=== PATIENT | male | born 1980 | race Caucasian/White ===

== ENCOUNTER → 2017-06-27 | Outpatient (CLI) | payer BC ==
[~2017-06-27] MED LIST: BND25X PO; CLON0.5T3 PO; GLC500 PO; IBUP-1428 PO; OXYC-57 PO; RANI300T2 PO
[2017-06-27 11:37] LABS: ALT/SGPT 75 U/L (12-78); AST/SGOT 27 U/L (15-37); BLOOD UREA NITROGEN 13 mg/dl (7-18); BUN/CREATININE RATIO 12.1 (10-20); CALCIUM 8.8 mg/dl (8.5-10.1); CARBON DIOXIDE 27 mmol/L (21-32); CHLORIDE 106 mmol/L (98-107); GLUCOSE 114 mg/dl (70-99); POTASSIUM 4.3 mmol/L (3.5-5.1); SODIUM 138 mmol/L (136-145)
[2017-06-27 11:48] LABS: ALB/GLOB RATIO 1.1 (0.9-2); ALKALINE PHOSPHATASE 98 U/L (45-117); CHOLESTEROL 151 mg/dl (0-200); CHOLESTEROL/HDL RATIO 7.6; HDL CHOLESTEROL 20 mg/dl; TRIGLYCERIDES 419 mg/dl (0-150)
== END | disposition home or self-care (01) ==
LOC: C.LABBC 08:33
PROVIDERS: ATTEND Nurse Practitioner Family
DX: Z13.220 Encounter for screening for lipoid disorders (principal); Z13.1 Encounter for screening for diabetes mellitus; Z13.29 Encounter for screening for other suspected endocrine disorder

== ENCOUNTER → 2017-11-23 | Outpatient (CLI) | payer OTHER ==
[2017-11-23 13:51] LABS: HEMOGLOBIN A1C 5.3 % (4.5-5.6)
[2017-11-23 14:12] LABS: ALT/SGPT 84 U/L (12-78); AST/SGOT 28 U/L (15-37); BLOOD UREA NITROGEN 16 mg/dl (7-18); CALCIUM 9.1 mg/dl (8.5-10.1); CARBON DIOXIDE 25 mmol/L (21-32); CREATININE 1.06 mg/dl (0.60-1.40); GLUCOSE 108 mg/dl (70-99); POTASSIUM 4.2 mmol/L (3.5-5.1); SODIUM 137 mmol/L (136-145)
[2017-11-23 14:15] LABS: ALKALINE PHOSPHATASE 66 U/L (45-117); CHOLESTEROL 178 mg/dl (0-200); LDL CHOLESTEROL CALCULATED 82 mg/dl; TOTAL PROTEIN 7.8 gm/dl (6.4-8.2)
== END | disposition home or self-care (01) ==
LOC: C.LABBC 10:36
PROVIDERS: ATTEND Nurse Practitioner Family
DX: R73.9 Hyperglycemia, unspecified (principal); E78.1 Pure hyperglyceridemia

== ENCOUNTER 2021-12-05 07:46 | Inpatient (IN) ==
[2021-12-05] MEDS ORDERED: ONDANSETRON INJ 2 MG/ML 2 ML VIAL IV STA (08:06)
[2021-12-05] MEDS ORDERED: MoRPHine SULFATE 4 MG/ML 1 ML CARP\\VIAL IV STA (08:06)
--- NOTE | 2021-12-05 08:08 | Emergency Department Note ---
History of Present Illness General Chief complaint: Back Injury/Pain Stated complaint: SEVERE BACK PAIN Time Seen by Provider: 12/05/21 07:52 History of Present Illness Maximum Pain Intensity: 7 This is a 41-year-old male that presents to the emergency department via private vehicle accompanied by female with complaints of "severe back pain". The patient states that he has been experiencing back pain for several years however over the past month it has significantly worsened. He denies any history of surgery to the back. He states that he believes the back pain recently worsened after he was cutting firewood. He notes that he presented here to the ED as well as [facility] and had an MRI of the L-spine performed. He then followed up with Dr. Campbell's office. Pain has been worsening. He presents to us today for further evaluation and management. Patient denies any fevers or chills. No abdominal pain. No chest pain or shortness of breath. He does note some weakness in the legs. No bowel or bladder incontinence or numbness/tingling in the genital region. Current pain 05/07. Home Medications Medication Instructions Recorded Confirmed Type fluoxetine 40 mg capsule 40 mg PO DAILY 11/26/21 12/05/21 History lansoprazole 30 mg capsule,delayed 30 mg PO DAILY 11/26/21 12/05/21 History release naproxen 500 mg tablet 500 mg PO BID PRN 11/26/21 12/05/21 History tramadol 50 mg tablet 50 mg PO QID PRN 11/26/21 12/05/21 History trazodone 50 mg tablet 50 mg PO HS PRN 11/26/21 12/05/21 History Allergies Allergy/AdvReac Type Severity Reaction Status Date / Time famotidine Allergy Intermediate HIVES/ULCERS Verified 11/26/21 22:13 IN MOUTH Past Med/Surg History Medical History [facility] Surgical History No significant past surgical history Social History Smoking Status: Never smoker Preferred Language: Kosovan Feels Safe at Home: Yes Review of Systems A total of 10 systems reviewed and were otherwise negative Physical Exam Vital Signs Vital Signs - 24 hr 12/05/21 07:49 12/05/21 08:39 12/05/21 09:16 Temperature 36.4 C L Temperature Source Oral Pulse Rate 104 H Pulse Rate [Left Finger] 86 82 Respiratory Rate 20 20 20 Respiratory Effort / Characteristics Non-Labored Non-Labored Respiratory Depth Normal Normal Blood Pressure 164/100 H Blood Pressure [Left Arm] 143/80 H 120/69 Blood Pressure Mean 121 Blood Pressure Mean [Left Arm] 101 86 Pulse Oximetry 99 97 97 Oxygen Delivery Method Room Air Room Air Room Air Sepsis Recent Fever Within 48 Hours No Sepsis New/Unexplained Change in Mental Status No Sepsis Action Taken by Nursing No Action Required VITAL SIGNS - Vital signs and nursing notes were reviewed. Stable and afebrile. GENERAL -41-year-old male appearing his stated age who is in no acute distress. Communicates well with provider and answers questions appropriately. SKIN - Without rashes. No meningeal or petechial rash. HEAD - NC/AT. EYES - Sclera anicteric. LUNGS - Chest wall symmetric without accessory muscle use, intercostals retractions, or central cyanosis. Normal vesicular breath sounds CTA B/L. No wheezes, rales, or rhonchi appreciated. CARDIAC - RRR with S1/S2. No murmur, rubs, or gallops appreciated. ABDOMENbenign abdominal exam. No tenderness to palpation. EXTREMITIES - No clubbing or peripheral cyanosis. Decreased movement of the left leg secondary to pain. +5/5 strength noted in UE/LE bilaterally. NEUROLOGIC - Cranial nerves II through XII grossly intact. PSYCH - A&Ox3 and cooperates fully with examiner. Pt is very pleasant and interacts well with examiner. Course Administered Medications Discontinued Medications Morphine Sulfate (Morphine Sulfate 4 Mg/Ml 1 Ml Carp\\Vial) 4 mg IV NOW STA Stop: 12/05/21 08:07 Last Admin: 12/05/21 08:33 Dose: 4 mg Documented by: [id number] Ondansetron HCl (Ondansetron Inj 2 Mg/Ml 2 Ml Vial) 4 mg IV NOW STA Stop: 12/05/21 08:07 Last Admin: 12/05/21 08:33 Dose: 4 mg Documented by: [id number] Medical Decision Making Laboratory Data Result diagrams: 12/05/21 08:16 12/05/21 08:16 Lab Results 12/05/21 12/05/21 12/05/21 Range/Units 08:16 08:16 08:16 WBC 7.75 (4.8-10.8) K/uL RBC 4.93 (4.7-6.1) M/uL Hgb 15.7 (14.0-18.0) g/dL Hct 45.0 (42-52) % MCV 91.3 (80-100) fL MCH 31.8 (25-34) pg MCHC 34.9 (32-36) g/dL RDW Std Deviation 41.7 (36.4-46.3) fL RDW Coeff of Zeke 12.4 (11.5-14.5) % Plt Count 236 (130-400) K/uL MPV 9.3 (7.4-10.4) fL Immature Gran % (Auto) 0.3 % Neut % (Auto) 53.6 % Lymph % (Auto) 37.8 % [place] % (Auto) 5.9 % Eos % (Auto) 2.1 % Baso % (Auto) 0.3 % Neut # (Auto) 4.16 (1.4-6.5) K/uL Lymph # (Auto) 2.93 (1.2-3.4) K/uL [place] # (Auto) 0.46 (0.11-0.59) K/uL Eos # (Auto) 0.16 (0-0.5) K/uL Baso # (Auto) 0.02 (0-0.2) K/uL Immature Gran # (Auto) 0.02 (0.00-0.02) K/uL PT 10.5 (9.0-12.0) Seconds INR 1.0 (0.9-1.1) APTT 27.9 (21.0-31.0) Seconds PTT Ratio 1.1 Sodium 138 (136-145) mmol/L Potassium 3.6 (3.5-5.1) mmol/L Chloride 103 (98-107) mmol/L Carbon Dioxide 27 (21-32) mmol/L Anion Gap 8 (3-11) BUN 15 (6-23) mg/dl Creatinine 0.98 (0.6-1.4) mg/dl Est Cr Clr Drug Dosing 113.0 ml/min Est GFR ( Amer) 109.0 ml/min Est GFR (Non-Af Amer) 94.1 ml/min BUN/Creatinine Ratio 15.3 (10-20) Glucose 131 H (70-99(Fasting)) mg/dl Calcium 9.3 (8.5-10.1) mg/dl Total Bilirubin 0.9 (0.2-1.0) mg/dl AST 20 (13-39) U/L ALT 40 (7-52) U/L Alkaline Phosphatase 69 (34-104) U/L Total Protein 7.1 (6.0-8.3) gm/dl Albumin 4.3 (3.4-5.0) gm/dl Globulin 2.8 (2.5-4.0) gm/dl Albumin/Globulin Ratio 1.5 (0.9-2) MDM Narrative Patient was seen and evaluated as above in room C08. Review was performed of nu rsing notes and vital signs. I did review pertinent previous visits and patient history. After obtaining a thorough history and physical examination the above work up was performed. Patient presents to us today with ongoing low back discomfort. He has followed up recently in Dr. Campbell's office for his spine ailment. He has had an MRI of the L-spine recently he notes at [facility]. He was referred here by the spine office. I did discuss the case with Dr. Campbell. He notes that he was able to view the patient's MRI of the L-spine. The patient does have abnormalities of which correlate with his discomfort. He will admit the patient for further evaluation and management with surgical intervention to repair this abnormality and to alleviate the patient's symptoms. Patient is happy with plan of care. He was ordered IV analgesics here. Basic labs were also drawn without significant abnormalities. Please refer to further documentation regarding his stay. GCS: 15 In the evaluation and treatment of this patient the following differential diagnosis entertained: Fracture, dislocation, subluxation, cauda equina syndrome, AAA, diverticulitis, appendicitis, torsion, osteomyelitis, piriformis syndrome, strain, sprain, among others. Impression & Plan Lumbar radiculopathy Discharge Plan Visit Data Chief Complaint: Back Injury/Pain Stated Complaint: SEVERE BACK PAIN ED Provider: Tyler Garcia ED Midlevel Provider: Manuel Puri Discharge Problem: Lumbar radiculopathy Patient Disposition: Admitted As Inpatient Condition: Good Forms Stand Alone Forms: My [facility] Prescriptions Prescriptions: No Action fluoxetine 40 mg capsule 40 mg PO DAILY RF: 0 trazodone 50 mg tablet 50 mg PO HS PRN (Reason: Sleep) RF: 0 tramadol 50 mg tablet 50 mg PO QID PRN (Reason: Pain) RF: 0 lansoprazole 30 mg capsule,delayed release(DR/EC) 30 mg PO DAILY RF: 0 naproxen 500 mg tablet 500 mg PO BID PRN (Reason: Pain) RF: 0 Referrals Referrals: Bob Serrano MD [Primary Care Provider] -
[2021-12-05 08:27] LABS: Basophils # (auto) 0.02 K/uL (0-0.2); Basophils % (auto) 0.3 %; Eosinophils # (auto) 0.16 K/uL (0-0.5); Eosinophils % (auto) 2.1 %; Hemoglobin 15.7 g/dL (14.0-18.0); Immature Granulocytes # (auto) 0.02 K/uL (0.00-0.02); Immature Granulocytes % (auto) 0.3 %; Lymphocytes # (auto) 2.93 K/uL (1.2-3.4); Lymphocytes % (auto) 37.8 %; Mean Corpuscular Hemoglobin 31.8 pg (25-34); Mean Corpuscular Hgb Conc 34.9 g/dL (32-36); Mean Corpuscular Volume 91.3 fL (80-100); Mean Platelet Volume 9.3 fL (7.4-10.4); Monocytes # (auto) 0.46 K/uL (0.11-0.59); Monocytes % (auto) 5.9 %; Neutrophils # (auto) 4.16 K/uL (1.4-6.5); Neutrophils % (auto) 53.6 %; Platelet Count 236 K/uL (130-400); RDW Coefficient of Variation 12.4 % (11.5-14.5); RDW Standard Deviation 41.7 fL (36.4-46.3); Red Blood Count 4.93 M/uL (4.7-6.1); White Blood Count 7.75 K/uL (4.8-10.8)
[2021-12-05 08:39] LABS: Partial Thromboplastin Ratio 1.1; Partial Thromboplastin Time 27.9 Seconds (21.0-31.0); Prothrombin Time 10.5 Seconds (9.0-12.0)
[2021-12-05 08:45] LABS: Albumin Globulin Ratio 1.5 (0.9-2); Albumin Level 4.3 gm/dl (3.4-5.0); BUN Creatinine Ratio 15.3 (10-20); Bilirubin,Total 0.9 mg/dl (0.2-1.0); Calcium 9.3 mg/dl (8.5-10.1); Est GFR (Non-African American) 94.1 ml/min; Globulin 2.8 gm/dl (2.5-4.0); Potassium 3.6 mmol/L (3.5-5.1); Total Protein 7.1 gm/dl (6.0-8.3)
[2021-12-05] MEDS: MoRPHine SULFATE 4 MG/ML 1 ML CARP\\VIAL IV PRN ×5 (10:12→16:58)
--- NOTE | 2021-12-05 10:51 | History & Physical Report ---
Date of Service December 05, 2021 Assessment & Plan (1) Lumbar disc herniation with radiculopathy: Plan: Excessive lumbar discrimination with a massive free fragment and cephalad migration at the L4-L5 level. Plan at this time he has severe radiculopathy and progressive neuro deficit. I am concerned he will establish a permanent foot drop. I am recommending an urgent lumbar decompression and fusion L4-L5. I will acknowledge he does have degenerative changes at L5-S1 but this is not contributing to his current symptom complex. He would require a wide decompression to safely and adequately remove the herniated disc fragments. This will create iatrogenic instability on top of an already compromised disc and subsequently require fusion. Risk benefits pros cons alternatives were in detail. We will make the patient n.p.o. after midnight plan for surgery t omorrow. History of Present Illness Chief Complaint: Severe back and bilateral leg pain Primary Care Provider: Bob Serrano MD This is a 41-year-old male who presents with lumbar back pain with radiation to bilateral lower extremities. Pain is much worse on the left than the right. It radiates in the left buttock posterior thigh to the foot. There is dense numbness and tingling in the left lower extremity. He is been developing a foot drop and left lower extremity. This is markedly limited his ability to stand and ambulate. He has been to the emergency room on more than one occasion secondary to severe pain. He is attempted recent manager long term care without any benefit. Is undergone lumbar injections in the past without improvement. Allergies Allergy/AdvReac Type Severity Reaction Status Date / Time famotidine Allergy Intermediate HIVES/ULCERS Verified 11/26/21 22:13 IN MOUTH Home Medications Medication Instructions Recorded Confirmed Type fluoxetine 40 mg capsule 40 mg PO DAILY 11/26/21 12/05/21 History lansoprazole 30 mg capsule,delayed 30 mg PO DAILY 11/26/21 12/05/21 History release naproxen 500 mg tablet 500 mg PO BID PRN 11/26/21 12/05/21 History tramadol 50 mg tablet 50 mg PO QID PRN 11/26/21 12/05/21 History trazodone 50 mg tablet 50 mg PO HS PRN 11/26/21 12/05/21 History Past Med/Surg History Medical History Bulging lumbar disc On [facility] MRI 2019 Surgical History No significant past surgical history Social History Smoking Status: Never smoker Preferred Language: Ethiopian Feels Safe at Home: Yes Physical Exam Physical Exam: On exam he does demonstrate 4-/5 left extensor pollicis longus and dorsiflexion compared to 5 or 5 on the right. Quadriceps are symmetric and intact. There is dense numbness to light touch and cold sensation to the left lower extremity compared to the right. There is both a contralateral tension sign with straight leg raising on the right as well as severe tension signs with straight leg raising on the left. Determine flexes diminished. Results & Data ([facility]) Vital Signs (Past 12 Hours) Vital Signs Temp Pulse Pulse Resp BP BP Pulse Ox 12/05/21 09:16 82 20 120/69 97 12/05/21 08:39 86 20 143/80 H 97 12/05/21 07:49 36.4 C L 104 H 20 164/100 H 99
[2021-12-05 12:02] LABS: Appearance Urine Clear (Clear); Bilirubin Urine Negative (Negative); Blood Urine Negative (Negative); Color Urine Yellow; Glucose Urine UA Negative (Negative); Ketones Urine Trace (Negative); Leukocyte Esterase Urine Negative (Negative); Nitrite Urine Negative (Negative); Protein Urine Negative (Negative); Specific Gravity Urine 1.028 (1.000-1.030); Urobilinogen Urine Negative (Negative)
--- NOTE | 2021-12-05 16:36 | Hospitalist Consultation ---
Date of Consultation December 05, 2021 Assessment & Plan (1) Lumbar disc herniation with radiculopathy: (2) Low back pain: (3) Bulging lumbar disc: - Pain management, bowel regimen and DVT ppx per the primary team. - MRI from outpt reviewed by the primary team which was noted to have abnor malities which would cause pain symptoms. Lumbar spine xray from 11/26 does not reveal acute fractures. - PT/OT consults after surgical procedure tomorrow - NPO at midnight - Follow am CBC to monitor for acute blood loss after surgery, hgb is currently stable - Has been following with pain management clinic as outpt - trialed naproxen, tramadol, and gabapentin with minimal relief. Would stop naproxen and tramadol. Cont gabapentin 300 mg TID. (4) GERD (gastroesophageal reflux disease): - Cont lansoprazole daily (5) Restless leg syndrome: - Not on medication for such, monitor (6) PTSD (post-traumatic stress disorder): - may continue prozac 40 mg daily, pt stopped trazodone 50 mg HS while was trialing tramadol - would dc on discharge. DVT ppx: - teds, scds CODE: Full code Dispo: From home, likely to remain in the hospital x 1-2 days Thank you for involving us in the care of Mr. Crowell. Please do not hesitate to call with questions or concerns. At this time medicine service will follow along. Supervising Physician Co-Signing Physician Notes 41-year-old male with PMHx of L4-L5 lumbar disc herniation with radiculopathy, failure of OP pain Mx and compicated w/ Lt foot drop, GERD, medical marijuana use, PTSD and RLS presented 12/05 to our ED, is evaluated by Dr. Campbell, for possible lumbar decompression tomorrow, is a medical consult for us. Patient denies any fever/chills/chest pain/cough/palpitation/other review of symptoms. No problems w/ bowel or bladder. Labs reviewed. Home medications reviewed. Pain control/DVT prophylaxis/PT/OT per Ortho. Incentive spirometry. Follow-up with EKG and chest x-ray. Upon examination: GENERAL: Alert and oriented x3. NAD, on RA. HEENT: No pallor, no icterus. Pupils equal, round and reactive to light. Oral mucosa moist. NECK: No JVD, no neck masses. HEART: S1 and S2 heard. Regular rate and rhythm. No murmur, no gallop. RESPIRATORY SYSTEM: Normal AP diameter. No accessory muscle use. No wheezing, no crackles. ABDOMEN: Soft, bowel sounds present, nontender, no distention. CENTRAL NERVOUS SYSTEM: No facial droop. Speech is clear. Obeys simple commands. Moves extremities. EXTREMITIES: No edema, no erythema seen. Left foot drop. Low back pain on SLRT x LLE. I have seen and examined the patient and have discussed the case with the provider above. I agree with the assessment and plan as stated. History of Present Illness Reason for Consultation: Medical management Requesting Physician: Dr. Campbell Attending Physician: Dr. Campbell History of Present Illness This is a 41-year-old male with PMHx of L4-L5 lumbar disc herniation with radiculopathy, who has previously followed with pain management clinic as an outpatient for lumbar spine issues. Other past medical history includes GERD, medical marijuana use, PTSD and restless leg syndrome. Initially The patient's pain started at the beginning of October where he initially presented to his PCP as an outpatient on 11/22/2021 for severe back pain, burning, and difficulty standing up from a sitting position. Patient has had significant difficulty with walking, however is not using any ambulatory assistive device. He admits to collapsing to the couch due to pain, intolerance to continue walking at times. He denies any mechanical falls. Denies bowel or bladder incontinence. He has a large left paracentral disc extrusion trusion L4-5 with significant central stenosis and impact on traversing nerve roots causing weakness of the left great toe extension and now progressively worsened to foot drop. He lives at home with his and his daughter. Patient is not vaccinated against COVID-19. Patient presented to the ER today was evaluated by Dr. Campbell who plans to take the patient for surgical procedure tomorrow morning. Social Hx: Previously smoked 1 ppd x 15 years, quit 10-12 years ago. Rare alcohol use, once yearly Past surgical hx: Previous Left tibia and fibula fracture as a child Allergies Allergy/AdvReac Type Severity Reaction Status Date / Time famotidine Allergy Intermediate HIVES/ULCERS Verified 11/26/21 22:13 IN MOUTH Home Medications Medication Instructions Recorded Confirmed Type fluoxetine 40 mg capsule 40 mg PO DAILY 11/26/21 12/05/21 History lansoprazole 30 mg capsule,delayed 30 mg PO DAILY 11/26/21 12/05/21 History release naproxen 500 mg tablet 500 mg PO BID PRN 11/26/21 12/05/21 History tramadol 50 mg tablet 50 mg PO QID PRN 11/26/21 12/05/21 History trazodone 50 mg tablet 50 mg PO HS PRN 11/26/21 12/05/21 History Patient History Medical History Bulging lumbar disc On [facility] 2019 Surgical History No significant past surgical history Social History Smoking Status: Never smoker Preferred Language: Mohawk Feels Safe at Home: Yes Review of Systems Review of Systems: Constitutional: No fever, sweats or chills Eyes: No diplopia, no worsening or blurred vision ENT: normal hearing, no trouble swallowing Respiratory: No cough, sputum, dyspnea at rest or on exertion Cardiovascular: No chest pain, tightness or palpitations Abdomen: No pain, nausea, vomiting, diarrhea or constipation Back: Left lower back Musculoskeletal: L hip joint pain, no calf pain, no swelling Neurologic: Left lower back and hip pain, radiating into the left hip, sometimes radiates down the back of his leg, sometimes pain in tib/fib area and feels like it did when he broke it as a child. Admits to burning sensation and dullness to light touch in left leg with tingling. + balance issues since back pain. Psychiatric: Hx of PTSD on medication Skin: No rash or itch Physical Exam Physical Exam: General: awake, alert, no apparent distress Head: Normocephalic, atraumatic ENT: PERRL, EOMI, no pharyngeal exudate, mucous membranes moist Chest: Clear to auscultation, on room air, no adventitious breath sounds Cardiac: Regular rate and rhythm, no murmur, no JVD, normal peripheral pulses, good capillary refill Abdominal: NABS x 4 quadrants, soft, nondistended, nontender to palpation, no rebound or guarding Back: able to perform straight leg raise with the right leg, not the left due to pain in the lower back. Extremities: Normal inspection, no peripheral edema or erythema, calfs nontender to palpation Psych: Normal mood and affect Neuro: AAO x 3, strength intact bilaterally and rated 5/5 in upper extremities, plantarflexion. + deficit with dorsiflexion of the left foot, + decreased sensation to light touch in the left lower leg and foot compared to right. + intact sharp and dull touch. speech is clear Results & Data Results & Data ([facility]) Vital Signs (Past 12 Hours) Vital Signs Temp Pulse Pulse Resp BP BP Pulse Ox 12/05/21 16:24 85 16 119/77 99 12/05/21 11:14 18 126/93 98 12/05/21 09:16 82 20 120/69 97 12/05/21 08:39 86 20 143/80 H 97 12/05/21 07:49 36.4 C L 104 H 20 164/100 H 99 Laboratory Results 12/05/21 12/05/21 12/05/21 14:20 11:55 10:30 WBC RBC Hgb Hct MCV MCH MCHC RDW Std Deviation RDW Coeff of Zeke Plt Count MPV Immature Gran % (Auto) Neut % (Auto) Lymph % (Auto) [place] % (Auto) Eos % (Auto) Baso % (Auto) Neut # (Auto) Lymph # (Auto) [place] # (Auto) Eos # (Auto) Baso # (Auto) Immature Gran # (Auto) PT INR APTT PTT Ratio Sodium Potassium Chloride Carbon Dioxide Anion Gap BUN Creatinine Est Cr Clr Drug Dosing Est GFR ( Amer) Est GFR (Non-Af Amer) BUN/Creatinine Ratio Glucose Calcium Total Bilirubin AST ALT Alkaline Phosphatase Total Protein Albumin Globulin Albumin/Globulin Ratio Urine Color Yellow Urine Appearance Clear Urine pH 6.0 Ur Specific [place] 1.028 Urine Protein Negative Urine Glucose (UA) Negative Urine Ketones Trace H Urine Blood Negative Urine Nitrite Negative Urine Bilirubin Negative Urine Urobilinogen Negative Ur Leukocyte Esterase Negative SARS-CoV-2, RNA, NAAT NEGATIVE Blood Type A Positive Antibody Screen NEGATIVE 12/05/21 12/05/21 12/05/21 08:16 08:16 08:16 WBC 7.75 RBC 4.93 Hgb 15.7 Hct 45.0 MCV 91.3 MCH 31.8 MCHC 34.9 RDW Std Deviation 41.7 RDW Coeff of Zeke 12.4 Plt Count 236 MPV 9.3 Immature Gran % (Auto) 0.3 Neut % (Auto) 53.6 Lymph % (Auto) 37.8 [place] % (Auto) 5.9 Eos % (Auto) 2.1 Baso % (Auto) 0.3 Neut # (Auto) 4.16 Lymph # (Auto) 2.93 [place] # (Auto) 0.46 Eos # (Auto) 0.16 Baso # (Auto) 0.02 Immature Gran # (Auto) 0.02 PT 10.5 INR 1.0 APTT 27.9 PTT Ratio 1.1 Sodium 138 Potassium 3.6 Chloride 103 Carbon Dioxide 27 Anion Gap 8 BUN 15 Creatinine 0.98 Est Cr Clr Drug Dosing 113.0 Est GFR ( Amer) 109.0 Est GFR (Non-Af Amer) 94.1 BUN/Creatinine Ratio 15.3 Glucose 131 H Calcium 9.3 Total Bilirubin 0.9 AST 20 ALT 40 Alkaline Phosphatase 69 Total Protein 7.1 Albumin 4.3 Globulin 2.8 Albumin/Globulin Ratio 1.5 Urine Color Urine Appearance Urine pH Ur Specific [place] Urine Protein Urine Glucose (UA) Urine Ketones Urine Blood Urine Nitrite Urine Bilirubin Urine Urobilinogen Ur Leukocyte Esterase SARS-CoV-2, RNA, NAAT Blood Type Antibody Screen (1) Low back pain Back pain laterality: left Chronicity: acute Sciatica laterality: sciatica of left side Sciatica presence: with sciatica Qualified Code(s): M54.42 - Lumbago with sciatica, left side
[2021-12-05] MEDS ORDERED: MoRPHine SULFATE 4 MG/ML 1 ML CARP\\VIAL IV PRN (17:07)
--- NOTE | 2021-12-05 17:39 | XRay Report ---
XR chest 1V portable CLINICAL HISTORY: Preoperative evaluation. COMPARISON STUDY: No previous studies for comparison. FINDINGS: Lung volumes are normal. Lungs are clear. There is no pneumothorax or pleural effusion. Car diac size is normal. Mediastinal contours are normal. There is no evidence for pulmonary edema. Incid ental note is made of an azygos fissure. IMPRESSION: No acute cardiopulmonary findings. ACT 112: Negative or not required by law. Electronically signed by: Bart Rodrigez M.D. 12/05/2021 5:38 PM
[2021-12-05] MEDS ORDERED: LORazepam 0.5 MG/1 ML VIAL IV PRN (19:58)
[2021-12-05] MEDS ORDERED: traMADol HCL 50 MG TABLET PO PRN (19:58)
[2021-12-05] MEDS ORDERED: PROMETHAZINE HCL 12.5 MG in SODIUM CHLORIDE 0.9% 50 ML IV PRN (19:58)
[2021-12-05] MEDS ORDERED: traZODone HCL 50 MG TAB PO PRN (19:58)
[2021-12-05] MEDS ORDERED: NALOXONE HCL 0.4 MG/1 ML VIAL/CARP IV PRN (19:58)
[2021-12-05] MEDS ORDERED: ONDANSETRON 4 MG OD TAB PO PRN (19:58)
[2021-12-05] MEDS ORDERED: HYDROmorphone INJ 0.5 MG/0.5 ML SYR IV PRN (19:58)
[2021-12-05] MEDS ORDERED: ACETAMINOPHEN 500 MG TAB PO PRN (19:58)
[2021-12-05] MEDS ORDERED: METOCLOPRAMIDE HCL INJ 5 MG/ML 2 ML VIAL IV PRN (19:58)
[2021-12-05] MEDS ORDERED: LORazepam 0.5 MG TAB PO PRN (19:58)
[2021-12-05] MEDS ORDERED: ACETAMINOPHEN 1,000 MG/100 ML VIAL IV PRN (19:58)
[2021-12-05] MEDS: ONDANSETRON INJ 2 MG/ML 2 ML VIAL IV PRN (20:23)
[2021-12-05] MEDS: LACTATED RINGER'S 1,000 ML IV SCH (20:24)
[2021-12-05] MEDS: oxyCODONE HCL IR 5 MG TAB (IMMEDIATE RELEASE) PO PRN (22:06)
[2021-12-06] MEDS: HYDROmorphone INJ 1 MG/ML SYRINGE IV PRN ×5 (01:56→19:52)
[2021-12-06] MEDS: ONDANSETRON INJ 2 MG/ML 2 ML VIAL IV PRN ×2 (02:18→10:11)
[2021-12-06] MEDS ORDERED: ceFAZolin 2000MG 2,000 MG/15 ML SYR IV SCH (06:00)
[2021-12-06] MEDS: oxyCODONE HCL IR 5 MG TAB (IMMEDIATE RELEASE) PO PRN ×2 (08:05→21:47)
[2021-12-06] MEDS: FLUoxetine HCL 20 MG CAP PO SCH (09:13)
[2021-12-06] MEDS: PANTOprazole 40 MG TAB PO SCH (09:13)
[2021-12-06] MEDS: LACTATED RINGER'S 1,000 ML IV SCH ×2 (10:04→16:34)
--- NOTE | 2021-12-06 11:11 | Hospitalist Progress Note ---
Date of Service December 06, 2021 Assessment & Plan (1) Lumbar disc herniation with radiculopathy: (2) Low back pain: (3) Bulging lumbar disc: Plan: Plan to undergo surgical intervention today by Dr. Campbell Pain management, bowel regimen and DVT ppx per the primary team. MRI from outpt reviewed by the primary team which was noted to have abnormalities which would cause pain symptoms. Lumbar spine xray from 11/26 does not reveal acute fractures. Will need PT/OT consults after surgical procedure tomorrow Follow h/h post operatively (4) GERD (gastroesophageal reflux disease): Plan: Cont lansoprazole daily (5) Restless leg syndrome: Plan: Not on medication for such, monitor (6) PTSD (post-traumatic stress disorder): Plan: may continue prozac 40 mg daily, pt stopped trazodone 50 mg HS while using tramadol - would dc on discharge. DVT ppx: teds, scds per ortho CODE: Full code Dispo: per primary PCP: Dr Serrano Patient was seen and examined in collaboration with, Dr. Reza, please see addendum Thank you for this consultation. We will follow the patient with you during their hospital stay. You can reach a member of the [facility] Hospitalist Team 21/05 via hospitalist role on [employer] text. The chart was completed utilizing [employer] Speech voice recognition software. Grammatical errors, random word insertions, pronoun errors, and incomplete sentences are an occasional consequence of this system due to software limitations, ambient noise, and hardware issues. Any formal questions or concerns about the content, text, or information contained within the body of this dictation should be directly addressed to the provider for clarification.. Admission and Anticipated Discharge Date Admission Date: December 05, 2021 Supervising Physician Co-Signing Physician Notes Attending addendum: The patient was seen and examined in medical floor He is a status post L4-L5 decompression and fusion Complains of some numbness in the legs but otherwise no significant symptoms On examination Remains hemodynamically stable Chest-clear to auscultate bilaterally Heart-S1, S2 regular no murmur Abdomen benign Extremities-negative for any edema His labs, imaging studies reviewed Status post L4-L5 lumbar decompression fusion Remains medically stable Agree with assessment and plan as outlined above by Mini Reza Subjective Patient was seen and examined in room 312. Follow-up low back pain with anticipation of lumbar decompression fusion today by Dr. Campbell. He offers no acute concerns. Currently feels low back pain is controlled. Complains of radicular symptoms to left lower extremity with numbness, tingling and pain. Denies any saddle anesthesia, bowel or bladder incontinence. Denies chest pain, shortness of breath, nausea, vomiting, abdominal pain. He is currently n.p.o. Review of Systems Review of Systems: All systems reviewed & are unremarkable except as noted in HPI & below Physical Exam Physical Exam: Gen: WD/WN, NAD, A&O x3 HEENT: Normocephalic, atraumatic, conjunctivae moist, sclerae anicteric, mucous membranes moist. Lung: Clear to Auscultation bilaterally, no wheezes/rales/rhonchi Heart: Regular rate, regular rhythm, no murmurs, rubs, or gallops Abdomen: Soft, NT, ND +BS x 4 Extremities: No edema Skin: Warm, no rash, negative turgor. Results & Data Results & Data ([facility]) Vital Signs (Past 12 Hours) Vital Signs Temp Pulse Resp BP Pulse Ox 12/06/21 10:43 36.8 C 96 H 20 156/91 H 100 12/06/21 07:11 37.3 C 73 16 125/87 99 Laboratory Results Urine 12/05/21 Range/Units 11:55 Urine Color Yellow Urine Appearance Clear (Clear) Urine pH 6.0 (4.5-7.5) Ur Specific [place] 1.028 (1.000-1.030) Urine Protein Negative (Negative) Urine Glucose (UA) Negative (Negative) Medications Administered Current Inpatient Medications Acetaminophen (Acetaminophen 500 Mg Tab) 1,000 mg PO Q8H PRN PRN Reason: MILD Pain Scale 1,2,3 & Pre PT Stop: 01/04/22 19:57 Last Admin: 12/06/21 08:06 Dose: 1,000 mg Documented by: Fluoxetine HCl (Fluoxetine Hcl 20 Mg Cap) 40 mg PO DAILY RONEY Stop: 01/05/22 08:59 Last Admin: 12/06/21 09:13 Dose: 40 mg Documented by: Hydromorphone HCl (Hydromorphone Inj 0.5 Mg/0.5 Ml Syr) 0.5 mg IV Q3H PRN PRN Reason: MOD pain (scale 4-6) & Pre PT Stop: 12/19/21 19:57 Last Admin: 12/05/21 20:23 Dose: 0.5 mg Documented by: Hydromorphone HCl (Hydromorphone Inj 1 Mg/Ml Syringe) 1 mg IV Q3H PRN PRN Reason: severe pain (scale 7-10) Stop: 12/19/21 19:57 Last Admin: 12/06/21 10:04 Dose: 1 mg Documented by: Acetaminophen (Ofirmev) 1,000 mg in 100 mls @ 400 mls/hr IV Q8H PRN PRN Reason: Pain Rating 1-3 & Pre PT Stop: 12/08/21 19:57 Cefazolin Sodium (Ancef 2000mg) 2,000 mg in 15 mls @ 3.75 mls/min IV PREOP RONEY; Protocol Stop: 12/07/21 05:59 Lactated Ringer's (Lr) 1,000 mls @ 75 mls/hr IV .[id number] RONEY Stop: 01/04/22 19:57 Last Admin: 12/06/21 10:04 Dose: 75 mls/hr Documented by: Promethazine HCl 12.5 mg/ (Sodium Chloride) 50.5 mls @ 202 mls/hr IV Q6H PRN PRN Reason: Nausea &/or Vomiting Stop: 01/04/22 19:57 Lorazepam (Ativan) 0.5 mg in 1 mls @ 1 mls/min IV Q8H PRN PRN Reason: Sedation/Anxiety Stop: 01/04/22 19:57 Lorazepam (Lorazepam 0.5 Mg Tab) 0.5 mg PO Q8H PRN PRN Reason: sedation/anxiety Stop: 01/04/22 19:57 Last Admin: 12/05/21 22:54 Dose: 0.5 mg Documented by: Metoclopramide HCl (Metoclopramide Hcl Inj 5 Mg/Ml 2 Ml Vial) 10 mg IV Q6H PRN PRN Reason: Nausea &/or Vomiting Stop: 01/04/22 19:57 Last Admin: 12/06/21 05:29 Dose: 10 mg Documented by: Morphine Sulfate (Morphine Sulfate 4 Mg/Ml 1 Ml Carp\Vial) 4 mg IV Q3H PRN PRN Reason: Pain Stop: 12/19/21 17:06 Naloxone HCl (Naloxone Hcl 0.4 Mg/1 Ml Vial/Carp) 0.1 mg IV Q5M PRN PRN Reason: Oversedation/respiratory dep Stop: 01/04/22 19:57 Ondansetron HCl (Ondansetron Inj 2 Mg/Ml 2 Ml Vial) 4 mg IV Q6H PRN PRN Reason: Nausea &/or Vomiting Stop: 01/04/22 19:57 Last Admin: 12/06/21 10:11 Dose: 4 mg Documented by: Ondansetron HCl (Ondansetron 4 Mg Od Tab) 4 mg PO Q6H PRN PRN Reason: Nausea Stop: 01/04/22 19:57 Oxycodone HCl (Oxycodone Hcl Ir 5 Mg Tab (Immediate Release)) 5 - 10 mg PO Q4H PRN PRN Reason: mod to severe pain Stop: 12/19/21 19:57 Last Admin: 12/06/21 08:05 Dose: 10 mg Documented by: Pantoprazole Sodium (Pantoprazole 40 Mg Tab) 40 mg PO DAILY RONEY Stop: 01/05/22 08:59 Last Admin: 12/06/21 09:13 Dose: 40 mg Documented by: Tramadol HCl (Tramadol Hcl 50 Mg Tablet) 50 - 100 mg PO Q4H PRN PRN Reason: Moderate-Severe pain & Pre PT Stop: 01/04/22 19:57 Trazodone HCl (Trazodone Hcl 50 Mg Tab) 50 mg PO HS PRN PRN Reason: Sleep Stop: 01/04/22 19:57 (1) Low back pain Back pain laterality: left Chronicity: acute Sciatica laterality: sciatica of left side Sciatica presence: with sciatica Qualified Code(s): M54.42 - Lumbago with sciatica, left side
[2021-12-06] MEDS ORDERED: fentaNYL citrate 100 MCG/2 ML VIAL ONE ×2 (11:19→13:34)
[2021-12-06] MEDS ORDERED: LIDOCAINE 2% 2 ML VIAL/AMP(20MG/ML) INFIL ONE (11:19)
[2021-12-06] MEDS ORDERED: DEXAMETHASONE SOD INJ 4 MG/ML VIAL ONE (11:19)
[2021-12-06] MEDS ORDERED: PROPOFOL IV EMULSION 10 MG/ML 20 ML VIAL IV ONE (11:19)
[2021-12-06] MEDS ORDERED: MIDAZOLAM HCL 1 MG/ML 2ML VIAL ONE (11:19)
[2021-12-06] MEDS ORDERED: ROCURONIUM BROMIDE 10 MG/ML 5 ML VIAL IV ONE ×2 (11:19→14:06)
[2021-12-06] MEDS ORDERED: ONDANSETRON INJ 2 MG/ML 2 ML VIAL ONE (11:19)
--- NOTE | 2021-12-06 11:20 | Anesthesiology Consultation ---
Date of Service December 06, 2021 Assessment & Plan Chart Review Chart Review: Acceptable Risk for Surgery and Patient NOT seen in Pre Admission Testing Consults Requested none ASA ASA2 Proposed Anesthesia Anesthesia Type: General Risk / Benefits Reviewed With: PT / POA / Parent / Guardian, Accepts Plan and Informed Consent Obtained History Surgery Operation Date: 12/06/21 11:25 Proposed Procedures p L4-L5 Decompression Fusion - Dalton Campbell DO Height/Weight Height: 6 ft 2 in Weight: 99.79 kg Allergies Allergy/AdvReac Type Severity Reaction Status Date / Time famotidine Allergy Intermediate HIVES/ULCERS Verified 11/26/21 22:13 IN MOUTH Medications Home Medications Medication Instructions Recorded Confirmed Last Taken fluoxetine 40 mg capsule 40 mg PO DAILY 11/26/21 12/05/21 12/04/21 lansoprazole 30 mg capsule,delayed 30 mg PO DAILY 11/26/21 12/05/21 12/04/21 release naproxen 500 mg tablet 500 mg PO BID PRN 11/26/21 12/05/21 Unknown tramadol 50 mg tablet 50 mg PO QID PRN 11/26/21 12/05/21 12/04/21 trazodone 50 mg tablet 50 mg PO HS PRN 11/26/21 12/05/21 Unknown Active Medications Generic Name Dose Route Start Last Admin Trade Name Mason PRN Reason Stop Dose Admin Acetaminophen 1,000 mg 12/05/21 19:58 12/06/21 08:06 Acetaminophen 500 Mg Tab PO 01/04/22 19:57 1,000 mg Q8H PRN Administration MILD Pain Scale 1,2,3 & Pre PT Fluoxetine HCl 40 mg 12/06/21 09:00 12/06/21 09:13 Fluoxetine Hcl 20 Mg Cap PO 01/05/22 08:59 40 mg DAILY RONEY Administration Hydromorphone HCl 0.5 mg 12/05/21 19:58 12/05/21 20:23 Hydromorphone Inj 0.5 Mg/0.5 Ml Syr IV 12/19/21 19:57 0.5 mg Q3H PRN Administration MOD pain (scale 4-6) & Pre PT Hydromorphone HCl 1 mg 12/05/21 19:58 12/06/21 10:04 Hydromorphone Inj 1 Mg/Ml Syringe IV 12/19/21 19:57 1 mg Q3H PRN Administration severe pain (scale 7-10) Lactated Ringer's 1,000 mls @ 75 mls/hr 12/05/21 19:58 12/06/21 10:04 Lr IV 01/04/22 19:57 75 mls/hr .[id number] RONEY Administration Lorazepam 0.5 mg 12/05/21 19:58 12/05/21 22:54 Lorazepam 0.5 Mg Tab PO 01/04/22 19:57 0.5 mg Q8H PRN Administration sedation/anxiety Metoclopramide HCl 10 mg 12/05/21 19:58 12/06/21 05:29 Metoclopramide Hcl Inj 5 Mg/Ml 2 Ml Vial IV 01/04/22 19:57 10 mg Q6H PRN Administration Nausea &/or Vomiting Ondansetron HCl 4 mg 12/05/21 19:58 12/06/21 10:11 Ondansetron Inj 2 Mg/Ml 2 Ml Vial IV 01/04/22 19:57 4 mg Q6H PRN Administration Nausea &/or Vomiting Oxycodone HCl 5 - 10 mg 12/05/21 19:58 12/06/21 08:05 Oxycodone Hcl Ir 5 Mg Tab (Immediate Release) PO 12/19/21 19:57 10 mg Q4H PRN Administration mod to severe pain Pantoprazole Sodium 40 mg 12/06/21 09:00 12/06/21 09:13 Pantoprazole 40 Mg Tab PO 01/05/22 08:59 40 mg DAILY RONEY Administration NPO Date Last Intake of Fluids: 12/05/21 Time Last Intake of Fluids: 23:00 Date Last Intake of Solids: 12/05/21 Time Last Intake of Solids: 23:00 Past Medical History Medical History Bulging lumbar disc On [facility] MRI 2019 Exercise / Class Metabolic Activity II 4-5 Yardwork/Stairs/Walk up hill Past Surgical History Surgical History No significant past surgical history Past Anesthesia History No Hx of Anesthesia Complications and No Family Hx of Anesthesia Complications History of PONV No Hx of PONV and No Hx of Motion Sickness Social History Smoking Status: Never smoker Hx Alcohol Use: No Hx Substance Use: Yes substance use type: marijuana Substance Use Type Other:: has medical card Last Used Substance: Unknown Physical Exam Vital Signs Last Vital Signs Temp 36.8 C 12/06/21 10:43 Pulse 96 H 12/06/21 10:43 Resp 20 12/06/21 10:43 BP 156/91 H 12/06/21 10:43 Pulse Ox 100 12/06/21 10:43 ENMT Mouth: no dentition abnormality Thyromental Distance: > or= 3.5 Finger Breadths Mallampati Class: II Neck normal visual inspection Respiratory normal respiratory effort Auscultation: lungs clear to auscultation bilaterally Cardiovascular Rate/Rhythm: regular rate and regular rhythm Psychiatric Orientation: alert Testing Laboratory Results 12/05/21 08:16 12/05/21 08:16 PT 10.5 Seconds (9.0-12.0) 12/05/21 08:16 INR 1.0 (0.9-1.1) 12/05/21 08:16 APTT 27.9 Seconds (21.0-31.0) 12/05/21 08:16 Urine Color Yellow 12/05/21 11:55 Urine Appearance Clear (Clear) 12/05/21 11:55 Urine pH 6.0 (4.5-7.5) 12/05/21 11:55 Ur Specific [place] 1.028 (1.000-1.030) 12/05/21 11:55 Urine Protein Negative (Negative) 12/05/21 11:55 Urine Glucose (UA) Negative (Negative) 12/05/21 11:55 Urine Ketones Trace (Negative) H 12/05/21 11:55 Urine Nitrite Negative (Negative) 12/05/21 11:55 Ur Leukocyte Esterase Negative (Negative) 12/05/21 11:55 Blood Type A Positive 12/05/21 14:20 Antibody Screen NEGATIVE 12/05/21 14:20
[2021-12-06] MEDS ORDERED: PROMETHAZINE HCL 6.25 MG in SODIUM CHLORIDE 0.9% 50 ML IV PRN (11:25)
[2021-12-06] MEDS ORDERED: ePHEDrine sulfate 50 MG/ML AMP IV PRN (11:25)
[2021-12-06] MEDS ORDERED: ATROPINE SULFATE 0.1 MG/ML 10ML SYR IV PRN (11:25)
[2021-12-06] MEDS ORDERED: ONDANSETRON INJ 2 MG/ML 2 ML VIAL IV PRN ×2 (11:25→15:46)
--- NOTE | 2021-12-06 12:10 | History & Physical Bridge Note ---
Date of Service December 06, 2021 History & Physical Bridge Note I have examined the patient, reviewed the History & Physical and in the interval since the performance of the History & Physical I have noted the following changes of clinical significance: no changes noted Decompression fusion L4-L5.
[2021-12-06] MEDS ORDERED: EPINEPHrine INJ 1 MG/ML AMP ONE (12:24)
[2021-12-06] MEDS ORDERED: ceFAZolin 330 MG/ML 1 GM VIAL ONE (12:25)
[2021-12-06] MEDS ORDERED: BUPIVACAINE 0.5 % 5 MG/1 ML MPF 30ML VIAL ONE (12:25)
[2021-12-06] MEDS ORDERED: KETAMINE 50 MG/5 ML SYRINGE ONE (13:01)
[2021-12-06] MEDS ORDERED: HYDROmorphone INJ 2 MG/ML SYR/VIAL ONE (13:01)
[2021-12-06] MEDS ORDERED: FLOSEAL HEMOSTATIC MATRIX 10ML TOP ONE (13:25)
[2021-12-06] MEDS ORDERED: NEOSTIGMINE METHYLSULFATE 1 MG/ML 10ML VIAL ONE (14:06)
[2021-12-06] MEDS ORDERED: GLYCOPYRROLATE 0.2 MG/ML VIAL ONE (14:06)
--- NOTE | 2021-12-06 14:15 | Operative Report ---
Post Operative Report Pre & Post Diagnosis Operation Date: 12/06/21 11:25 Pre-Op Diagnosis: LUMBAR DISK HERNIATION WITH WEAKNESS Post-Op Diagnosis: LUMBAR DISK HERNIATION WITH WEAKNESS I identified the patient and participated in the time-out.: Yes Procedure Operation Date: 12/06/21 11:25 Actual Procedures 1 lumbar decompression with bilateral medial facetectomies and foraminotomies L3-L4 L4-5. #2 posterior spinal fusion L4-5. #3 placement of posterior instrumentation L4-5. #4 interbody fusion L4-L5. #5 placement of titanium cage 14 x 26 mm at L4-5. #6 placement locally harvested morselized autograft in the posterior gutters. #7 placement of I factor combined with the toxin interbody space and posterior lateral gutters. Surgeon DO Assistant Johny Melendez Estimated Blood Loss 100 Findings Consistent with Post-Op Diagnosis Specimens None Indications This is a 41-year-old male that presents with severe radiculopathy and developing foot drop affecting the left lower extremity. Imaging lumbar spine demonstrates evidence of a massive free fragments of disc material emanating the L4-5 disc space with cephalad migration favoring the left side of the canal. Subsequently is here for urgent decompression fusion. Description of Procedure Patient was met with identified informed consent obtained. Patient was then taken to the operative suite underwent a patient placed in a prone position the [place] table top Rick frame. All bony prominences well-padded eyes inspected to ensure no external pressure placed upon the. This point the lumbar spine was prepped and draped in normal sterile fashion. Sharp dissection with the assistance of Bovie cartilage from down to and exposing the lamina and transverse processes of L4 and L5. From caudal to cephalad fashion complete laminectomy of L4 partial laminectomy of L3 was performed in order to adequately decompress the canal and safely reach around and pull out a massive fragment of disc material that migrated cephalad up under the L3 lamina. Did have to remove the entire facet on the left adequately access the canal safely. Was able to retrieve all fragments of disc material. Pedicle screws then placed in L4-5 bilaterally with assistance of fluoroscopy the proper sized marta placed. By way of a transforaminal approach on the left pleat discectomy of L4-L5 was performed endplates curetted to subcortical mean bone and a 15 x 26 mm titanium cage filled I factor tapped in position. The rods were then compressed locked into final position by leg. The transverse processes of L4 and L5 burred to subcortical bleeding bone. V toss combined with locally harvested morselized autograft and I factor was then placed in the posterior gutters. 15 round DOMINIQUE drain inserted. The incision was then closed with 1 Vicryl the fascia 2-0 Vicryl subcutaneously and 4 Monocryl for final skin closure. Steri-Strip sterile dressi ngs placed. Patient will continue PACU stable condition. Please note spinal cord monitoring was utilized at the procedure no changes noted. Lastly Stephanie Mcclain was present at the entire surgery and while the patient positioning complex portions of the surgery and final skin closure. I attest to the content of the Intraoperative Record and any orders documented therein. Any exceptions are noted below.
--- NOTE | 2021-12-06 14:28 | Fluoroscopy Report ---
FL lumbar spine 2-3V CLINICAL HISTORY: L4-5 DECOMPRESSION/FUSION COMPARISON STUDY: None. FLUOROSCOPY TIME: 21 seconds. FINDINGS: 2 fluoroscopic spot images of the lower lumbar spine demonstrate posterior decompression fu manuela at L4-L5 with pedicle screws and rods. A disc spacer is in place. The hardware appears intact. IMPRESSION: Fluoroscopic assistance provided for L4-5 posterior decompression and fusion. ACT 112: Negative or not required by law. Electronically signed by: Rolan Briceño M.D. 12/06/2021 2:26 PM
[2021-12-06] MEDS: fentaNYL citrate 100 MCG/2 ML VIAL IV PRN ×4 (14:36→14:51)
--- NOTE | 2021-12-06 14:49 | Anesthesiology Progress Note ---
Date of Service December 06, 2021 Anesthesia Post Procedure Vital Signs Vital Signs: Temp Pulse Pulse Resp BP Pulse Ox 12/06/21 10:43 36.8 C 96 H 20 156/91 H 100 12/06/21 07:11 37.3 C 73 16 125/87 99 12/05/21 21:55 36.5 C 70 16 165/90 H 99 12/05/21 20:30 36.6 C 81 16 144/96 H 99 12/05/21 19:40 77 18 98 12/05/21 19:37 77 18 96 12/05/21 16:24 85 16 119/77 99 Pain Intensity Back: Pain Intensity: 6 Left Leg: Pain Intensity: 4 Transfer of Care Handoff Completed per policy Notes Mental Status: alert / awake / arousable Patient Amnestic to Procedure: Yes Nausea / Vomiting: adequately controlled Pain: adequately controlled Airway Patency, RR, SpO2: stable & adequate BP & HR: stable & adequate Hydration State: stable & adequate Anesthetic Complications: no major complications apparent
[2021-12-06] MEDS: HYDROmorphone INJ 2 MG/ML SYR/VIAL IV PRN ×5 (14:56→15:11)
[2021-12-06] MEDS ORDERED: traMADol HCL 50 MG TABLET PO PRN (15:46)
[2021-12-06] MEDS ORDERED: LORazepam 0.5 MG/1 ML VIAL IV PRN (15:46)
[2021-12-06] MEDS ORDERED: diphenhydrAMINE Capsule 25 MG CAP PO PRN (15:46)
[2021-12-06] MEDS ORDERED: ONDANSETRON 4 MG OD TAB PO PRN (15:46)
[2021-12-06] MEDS ORDERED: HYDROmorphone INJ 0.5 MG/0.5 ML SYR IV PRN (15:46)
[2021-12-06] MEDS ORDERED: MAGNESIUM HYDROXIDE SUSP 30 ML UDC PO PRN (15:46)
[2021-12-06] MEDS ORDERED: ACETAMINOPHEN 500 MG TAB PO PRN (15:46)
[2021-12-06] MEDS ORDERED: METOCLOPRAMIDE HCL INJ 5 MG/ML 2 ML VIAL IV PRN (15:46)
[2021-12-06] MEDS ORDERED: FAMOTIDINE 20 MG TAB PO PRN (15:46)
[2021-12-06] MEDS ORDERED: hydrOXYzine HCl 25 MG TAB PO PRN (15:46)
[2021-12-06] MEDS ORDERED: LORazepam 0.5 MG TAB PO PRN (15:46)
[2021-12-06] MEDS ORDERED: DO NOT ADMINISTER FLU VACCINE PRN (15:46)
[2021-12-06] MEDS ORDERED: ALUMINUM/MAGNESIUM SUSP 30 ML UDC PO PRN (15:46)
[2021-12-06] MEDS ORDERED: DO NOT ADMINISTER PNEUMOCOCCAL VACCINE PRN (15:46)
[2021-12-06] MEDS ORDERED: SOD PHOSPHATE/SOD BIPHOSPHATE ENEMA 132 ML BTL PR PRN (15:46)
[2021-12-06] MEDS ORDERED: ACETAMINOPHEN 1,000 MG/100 ML VIAL IV PRN (15:46)
[2021-12-06] MEDS ORDERED: PROMETHAZINE HCL 12.5 MG in SODIUM CHLORIDE 0.9% 50 ML IV PRN (15:46)
[2021-12-06] MEDS ORDERED: NALOXONE HCL 0.4 MG/1 ML VIAL/CARP IV PRN (15:46)
[2021-12-06] MEDS ORDERED: bisacodyL 10 MG SUPP PR PRN (15:46)
[2021-12-06] MEDS: KETOROLAC 30 MG/ML VIAL IV SCH ×2 (16:38→23:04)
[2021-12-06] MEDS: ceFAZolin 2000MG 2,000 MG/15 ML SYR IV SCH (20:32)
[2021-12-06] MEDS: DOCUSATE SODIUM/SENNA 50/8.6MG TAB PO SCH (20:32)
[2021-12-07] MEDS: HYDROmorphone INJ 1 MG/ML SYRINGE IV PRN ×2 (00:37→14:25)
[2021-12-07] MEDS: LACTATED RINGER'S 1,000 ML IV SCH (00:39)
[2021-12-07] MEDS: oxyCODONE HCL IR 5 MG TAB (IMMEDIATE RELEASE) PO PRN ×4 (03:26→22:09)
[2021-12-07] MEDS: ceFAZolin 2000MG 2,000 MG/15 ML SYR IV SCH (05:00)
[2021-12-07] MEDS: KETOROLAC 30 MG/ML VIAL IV SCH ×2 (06:00→11:10)
[2021-12-07] MEDS: POLYETHYLENE (MIRALAX) 17 GM PACK PO SCH ×2 (06:03→11:11)
--- NOTE | 2021-12-07 06:47 | Electrocardiogram Report ---
Test Reason : Blood Pressure : / mmHG Vent. Rate : 066 BPM Atrial Rate : 066 BPM P-R Int : 148 ms QRS Dur : 092 ms QT Int : 410 ms P-R-T Axes : 063 062 064 degrees QTc Int : 429 ms Poor data quality, interpretation may be adversely affected Normal sinus rhythm Normal ECG No previous ECGs available Confirmed by Elia Velazquez ([id number]) on 12/07/2021 6:47:47 AM Referred By: REFERRED SELF Confirmed By:Elia Velazquez
[2021-12-07] MEDS: PANTOprazole 40 MG TAB PO SCH (08:00)
[2021-12-07] MEDS: FLUoxetine HCL 20 MG CAP PO SCH (08:00)
[2021-12-07 08:10] LABS: Basophils # (auto) 0.01 K/uL (0-0.2); Basophils % (auto) 0.1 %; Eosinophils # (auto) 0.01 K/uL (0-0.5); Eosinophils % (auto) 0.1 %; Hematocrit (blood only) 38.5 % (42-52); Hemoglobin 13.5 g/dL (14.0-18.0); Immature Granulocytes # (auto) 0.05 K/uL (0.00-0.02); Immature Granulocytes % (auto) 0.3 %; Lymphocytes # (auto) 2.89 K/uL (1.2-3.4); Lymphocytes % (auto) 17.6 %; Mean Corpuscular Hemoglobin 31.9 pg (25-34); Mean Corpuscular Hgb Conc 35.1 g/dL (32-36); Mean Platelet Volume 9.3 fL (7.4-10.4); Monocytes # (auto) 1.58 K/uL (0.11-0.59); Monocytes % (auto) 9.6 %; Neutrophils # (auto) 11.84 K/uL (1.4-6.5); Neutrophils % (auto) 72.3 %; Platelet Count 241 K/uL (130-400); RDW Coefficient of Variation 12.5 % (11.5-14.5); RDW Standard Deviation 41.7 fL (36.4-46.3); Red Blood Count 4.23 M/uL (4.7-6.1); White Blood Count 16.38 K/uL (4.8-10.8)
[2021-12-07 08:27] LABS: BUN Creatinine Ratio 14.3 (10-20); Calcium 9.2 mg/dl (8.5-10.1); Creatinine Clr Calc Pharmacy 143.1 ml/min; Est GFR (African American) 124.3 ml/min; Est GFR (Non-African American) 107.2 ml/min; Potassium 4.1 mmol/L (3.5-5.1)
--- NOTE | 2021-12-07 08:38 | Orthopedic Progress Note ---
Date of Service December 07, 2021 Assessment & Plan (1) Lumbar disc herniation with radiculopathy: Plan: Patient is postoperative day 1 TLIF L4-5. He will start physical therapy today. DVT prophylaxis is in the form of teds and SCDs. Maintain DOMINIQUE drain. Continue with bowel regimen. Anticipate discharge home within the next 24 to 48 hours Admission and Anticipated Discharge Date Admission Date: December 05, 2021 Subjective Patient is postoperative day 1 TLIF at L4-5. Leg pain has resolved. Back pain is controlled. DOMINIQUE drain output last shift was 60 cc. Had an uneventful evening. Review of Systems Review of Systems: All systems reviewed & are unremarkable except as noted in HPI & below Physical Exam Physical Exam: Alert and oriented x3 Acute distress Lumbar dressing is clean dry and intact with functioning DOMINIQUE drain 3/5 left EHL otherwise intact bilateral lower extremity Soft nontender bilaterally Results & Data ([facility]) Vital Signs (Past 12 Hours) Vital Signs Temp Pulse Resp BP Pulse Ox 12/07/21 07:00 37 C 75 18 136/78 99 12/07/21 03:29 37 C 88 18 157/90 H 98 12/07/21 00:48 89 158/91 H 12/06/21 23:14 96 H 18 98 12/06/21 23:02 99 H 154/94 H 12/06/21 21:37 105 H 152/98 H 97
--- NOTE | 2021-12-07 12:22 | Hospitalist Progress Note ---
Date of Service December 07, 2021 Assessment & Plan (1) Lumbar disc herniation with radiculopathy: (2) Low back pain: (3) Bulging lumbar disc: Plan: Status post L4-L5 lumbar decompression fusion by Dr. Campbell POD #1 Tolerated procedure well Pain management, bowel regimen and DVT ppx per the primary team. Encourage incentive spirometry Activity and therapy as prescribed orthopedics Monitor hemoglobin, 3.5 today Anemia Preop hemoglobin 15.7, today 13.5 Expected blood loss in setting of surgery, likely dilutional component as well DOMINIQUE drain still in place (4) GERD (gastroesophageal reflux disease): Plan: Cont lansoprazole daily (5) Restless leg syndrome: Plan: Not on medication for such, monitor (6) PTSD (post-traumatic stress disorder): Plan: may continue prozac 40 mg daily, pt stopped trazodone 50 mg HS while using tramadol - would dc on discharge. DVT ppx: teds, scds per ortho CODE: Full code Dispo: per primary PCP: Dr Serrano Patient was seen and examined in collaboration with, Dr. Kaur, please see addendum Thank you for this consultation. We will follow the patient with you during their hospital stay. You can reach a member of the [facility] Hospitalist Team 21/05 via hospitalist role on bubl text. The chart was completed utilizing [facility] Speech voice recognition software. Grammatical errors, random word insertions, pronoun errors, and incomplete sentences are an occasional consequence of this system due to software limitations, ambient noise, and hardware issues. Any formal questions or concerns about the content, text, or information contained within the body of this dictation should be directly addressed to the provider for clarification. Admission and Anticipated Discharge Date Admission Date: December 05, 2021 Subjective Patient was seen and examined in room 312. Follow-up lumbar procedure by Dr. Campbell. He feels well this morning. He does have incisional pain. He feels left lower extremity radicular symptoms have significantly improved. Did have nausea postoperatively but this has since resolved. Overall decreased appetite. Denies chest pain, shortness of breath, nausea, vomiting, abdominal pain, fever, chills, sweats. Was up and ambulating with walker around the unit last evening. Review of Systems Review of Systems: All systems reviewed & are unremarkable except as noted in HPI & below Physical Exam Physical Exam: Gen: WD/WN, NAD, A&O x3 HEENT: Normocephalic, atraumatic, conjunctivae moist, sclerae anicteric, mucous membranes moist. Lung: Clear to Auscultation bilaterally, no wheezes/rales/rhonchi Heart: Regular rate, regular rhythm, no murmurs, rubs, or gallops Abdomen: Soft, NT, ND +BS x 4 Extremities: No edema, lumbar dressing CDI, DOMINIQUE drain with serosanguineous drainage Skin: Warm, no rash, negative turgor. Results & Data Results & Data ([facility]) Vital Signs (Past 12 Hours) Vital Signs Temp Pulse Resp BP Pulse Ox 12/07/21 07:00 37 C 75 18 136/78 99 12/07/21 03:29 37 C 88 18 157/90 H 98 12/07/21 00:48 89 158/91 H Laboratory Results Short CBC 12/07/21 Range/Units 07:51 WBC 16.38 H (4.8-10.8) K/uL Hgb 13.5 L (14.0-18.0) g/dL Hct 38.5 L (42-52) % Plt Count 241 (130-400) K/uL BMP 12/07/21 07:51 Sodium 136 Potassium 4.1 Chloride 102 Carbon Dioxide 28 BUN 12 Creatinine 0.84 Glucose 98 Calcium 9.2 Diagnostic Findings Lumbar Spine X-Ray 12/06/21 11:25 FL lumbar spine 2-3V CLINICAL HISTORY: L4-5 DECOMPRESSION/FUSION COMPARISON STUDY: None. FLUOROSCOPY TIME: 21 seconds. FINDINGS: 2 fluoroscopic spot images of the lower lumbar spine demonstrate posterior decompression fusion at L4-L5 with pedicle screws and rods. A disc spacer is in place. The hardware appears intact. IMPRESSION: Fluoroscopic assistance provided for L4-5 posterior decompression and fusion. ACT 112: Negative or not required by law. Electronically signed by: Rolan Briceño M.D. 12/06/2021 2:26 PM Medications Administered Current Inpatient Medications Acetaminophen (Acetaminophen 500 Mg Tab) 1,000 mg PO Q8H PRN PRN Reason: MILD Pain Scale 1,2,3 & Pre PT Stop: 01/05/22 15:45 Al Hydrox/Mg Hydrox/Simethicone (Aluminum/Magnesium Susp 30 Ml Udc) 30 ml PO Q6H PRN PRN Reason: Dyspepsia Stop: 01/05/22 15:45 Last Admin: 12/07/21 03:39 Dose: 30 ml Documented by: Bisacodyl (Bisacodyl 10 Mg Supp) 10 mg NJ DAILY PRN PRN Reason: Constipation Stop: 01/05/22 15:45 Diphenhydramine HCl (Diphenhydramine Capsule 25 Mg Cap) 25 mg PO Q6H PRN PRN Reason: Allergic Rhinitis/Insomnia Stop: 01/05/22 15:45 Famotidine (Famotidine 20 Mg Tab) 20 mg PO Q12H PRN PRN Reason: Dyspepsia Stop: 01/05/22 15:45 Fluoxetine HCl (Fluoxetine Hcl 20 Mg Cap) 40 mg PO DAILY RONEY Stop: 01/05/22 08:59 Last Admin: 12/07/21 08:00 Dose: 40 mg Documented by: Hydromorphone HCl (Hydromorphone Inj 0.5 Mg/0.5 Ml Syr) 0.5 mg IV Q3H PRN PRN Reason: MODERATE Pain (Scale 4,5,6) & Pre PT Stop: 12/20/21 15:45 Hydromorphone HCl (Hydromorphone Inj 1 Mg/Ml Syringe) 1 mg IV Q3H PRN PRN Reason: SEVERE Pain (Scale 7,8,9,10) Stop: 12/20/21 15:45 Last Admin: 12/07/21 00:37 Dose: 1 mg Documented by: Hydroxyzine HCl (Hydroxyzine Hcl 25 Mg Tab) 25 mg PO Q8H PRN PRN Reason: Anxiety Stop: 01/05/22 15:45 Promethazine HCl 12.5 mg/ (Sodium Chloride) 50.5 mls @ 202 mls/hr IV Q6H PRN PRN Reason: Nausea &/or Vomiting Stop: 01/05/22 15:45 Acetaminophen (Ofirmev) 1,000 mg in 100 mls @ 400 mls/hr IV Q8H PRN PRN Reason: Pain Rating 1-3 & Pre PT Stop: 12/09/21 15:45 Lorazepam (Ativan) 0.5 mg in 1 mls @ 1 mls/min IV Q8H PRN PRN Reason: Sedation/Anxiety Stop: 01/05/22 15:45 Last Admin: 12/06/21 20:14 Dose: 1 mls/min Documented by: Influenza Virus Vaccine Quadrival (Do Not Administer Flu Vaccine) 1 ea N/A PRN PRN PRN Reason: Notification Stop: 01/05/22 15:45 Lorazepam (Lorazepam 0.5 Mg Tab) 0.5 mg PO Q8H PRN PRN Reason: Sedation/Anxiety Stop: 01/05/22 15:45 Magnesium Hydroxide (Magnesium Hydroxide Susp 30 Ml Udc) 30 ml PO Q24H PRN PRN Reason: Constipation Stop: 01/05/22 15:45 Metoclopramide HCl (Metoclopramide Hcl Inj 5 Mg/Ml 2 Ml Vial) 10 mg IV Q6H PRN PRN Reason: Nausea &/or Vomiting Stop: 01/05/22 15:45 Naloxone HCl (Naloxone Hcl 0.4 Mg/1 Ml Vial/Carp) 0.1 mg IV Q5M PRN PRN Reason: Oversedation/Resp depression Stop: 01/05/22 15:45 Ondansetron HCl (Ondansetron Inj 2 Mg/Ml 2 Ml Vial) 4 mg IV Q6H PRN PRN Reason: Nausea &/or Vomiting Stop: 01/05/22 15:45 Last Admin: 12/06/21 19:52 Dose: 4 mg Documented by: Ondansetron HCl (Ondansetron 4 Mg Od Tab) 4 mg PO Q6H PRN PRN Reason: Nausea Stop: 01/05/22 15:45 Oxycodone HCl (Oxycodone Hcl Ir 5 Mg Tab (Immediate Release)) 5 - 10 mg PO Q4H PRN PRN Reason: Pain & Pre PT Stop: 12/20/21 15:45 Last Admin: 12/07/21 08:30 Dose: 10 mg Documented by: Pantoprazole Sodium (Pantoprazole 40 Mg Tab) 40 mg PO DAILY RONEY Stop: 01/05/22 08:59 Last Admin: 12/07/21 08:00 Dose: 40 mg Documented by: Pneumococcal Polyvalent Vaccine (Do Not Administer Pneumococcal Vaccine) 1 ea N/A PRN PRN PRN Reason: Notification Stop: 01/05/22 15:45 Polyethylene Glycol (Polyethylene (Miralax) 17 Gm Pack) 17 gm PO Q6 RONEY Stop: 01/06/22 05:59 Last Admin: 12/07/21 11:11 Dose: Not Given Documented by: Senna/Docusate Sodium (Docusate Sodium/Senna 50/8.6mg Tab) 2 tab PO HS RONEY Stop: 01/05/22 20:59 Last Admin: 12/06/21 20:32 Dose: 2 tab Documented by: Sodium Biphosphate/Sodium Phosphate (Sod Phosphate/Sod Biphosphate Enema 132 Ml Btl) 132 ml NJ ONE PRN PRN Reason: Constipation Stop: 01/05/22 15:45 Tramadol HCl (Tramadol Hcl 50 Mg Tablet) 50 - 100 mg PO Q4H PRN PRN Reason: Moderate-Severe pain & Pre PT Stop: 01/05/22 15:45 Trazodone HCl (Trazodone Hcl 50 Mg Tab) 50 mg PO HS PRN PRN Reason: Sleep Stop: 01/04/22 19:57 (1) Low back pain Back pain laterality: left Chronicity: acute Sciatica laterality: sciatica of left side Sciatica presence: with sciatica Qualified Code(s): M54.42 - Lumbago with sciatica, left side
[2021-12-07] MEDS: DOCUSATE SODIUM/SENNA 50/8.6MG TAB PO SCH (19:56)
[2021-12-08] MEDS: oxyCODONE HCL IR 5 MG TAB (IMMEDIATE RELEASE) PO PRN ×3 (02:05→13:06)
[2021-12-08 06:12] LABS: Hematocrit (blood only) 39.9 % (42-52); Hemoglobin 13.9 g/dL (14.0-18.0); Mean Corpuscular Hgb Conc 34.8 g/dL (32-36); Mean Corpuscular Volume 91.7 fL (80-100); Mean Platelet Volume 9.6 fL (7.4-10.4); Platelet Count 213 K/uL (130-400); RDW Coefficient of Variation 12.4 % (11.5-14.5); RDW Standard Deviation 41.8 fL (36.4-46.3); Red Blood Count 4.35 M/uL (4.7-6.1); White Blood Count 11.16 K/uL (4.8-10.8)
[2021-12-08 06:35] LABS: BUN Creatinine Ratio 15.8 (10-20); Calcium 9.1 mg/dl (8.5-10.1); Creatinine Clr Calc Pharmacy 158.2 ml/min; Est GFR (African American) 129.5 ml/min; Est GFR (Non-African American) 111.7 ml/min; Potassium 3.5 mmol/L (3.5-5.1)
[2021-12-08] MEDS: PANTOprazole 40 MG TAB PO SCH (08:16)
[2021-12-08] MEDS: FLUoxetine HCL 20 MG CAP PO SCH (08:16)
--- NOTE | 2021-12-08 08:38 | Hospitalist Progress Note ---
Date of Service December 08, 2021 Assessment & Plan (1) Lumbar disc herniation with radiculopathy: (2) Low back pain: (3) Bulging lumbar disc: Plan: Status post L4-L5 lumbar decompression fusion by Dr. Campbell, POD #2 Pain management, bowel regimen and DVT ppx per the primary team Encourage incentive spirometry Activity and therapy as prescribed orthopedics Monitor hemoglobin, 3.5 today Anemia Hgb stable at 13.9 (13.5 yesterday) Expected blood loss in setting of surgery, likely dilutional component as well DOMINIQUE drain still in place (4) GERD (gastroesophageal reflux disease): Plan: Cont lansoprazole daily (5) Restless leg syndrome: Plan: Not on medication for such, monitor (6) PTSD (post-traumatic stress disorder): Plan: May continue prozac 40 mg daily, pt stopped trazodone 50 mg HS while using tramadol DVT ppx: teds, scds per ortho CODE: Full code Dispo: per primary PCP: Dr Serrano Patient was seen and examined in collaboration with, Dr. Kaur, please see addendum Thank you for this consultation. We will follow the patient with you during their hospital stay. You can reach a member of the [facility] Hospitalist Team 21/05 via hospitalist role on tiger text. Admission and Anticipated Discharge Date Admission Date: December 05, 2021 Subjective Patient was seen and examined in room 312. Follow-up lumbar procedure by Dr. Campbell. Feeling well this morning with some incisional pain. LLE radicular symptoms have significantly improved since surgery. Ambulating with PT. Denies F/C, chest pain, shortness of breath, nausea, vomiting, abdominal pain, dysuria. Had bowel movement yesterday. Review of Systems Review of Systems: At least ten systems reviewed and negative except as noted in the HPI. Physical Exam Physical Exam: Gen: WD/WN, NAD, sitting in bed, A&Ox3 HEENT: Normocephalic, atraumatic, conjunctivae moist, sclerae anicteric, mucous membranes moist Lung: Clear to Auscultation bilaterally, no wheezes/rales/rhonchi Heart: Regular rate, regular rhythm, no murmurs, rubs, or gallops Abdomen: Soft, NT, ND +BS x 4 Extremities: Spinal dressing c/d/i. DOMINIQUE drain with minimal output. No edema Skin: Warm, no rash Results & Data Results & Data ([facility]) Vital Signs (Past 12 Hours) Vital Signs Temp Pulse Resp BP Pulse Ox 12/08/21 07:11 37.4 C 84 16 148/75 H 97 12/07/21 21:19 37.1 C 79 16 149/83 H 96 Laboratory Results Short CBC 12/08/21 Range/Units 05:54 WBC 11.16 H (4.8-10.8) K/uL Hgb 13.9 L (14.0-18.0) g/dL Hct 39.9 L (42-52) % Plt Count 213 (130-400) K/uL BMP 12/08/21 05:54 Sodium 136 Potassium 3.5 Chloride 103 Carbon Dioxide 24 BUN 12 Creatinine 0.76 Glucose 109 H Calcium 9.1 Diagnostic Findings Chest X-Ray 12/05/21 17:00 XR chest 1V portable CLINICAL HISTORY: Preoperative evaluation. COMPARISON STUDY: No previous studies for comparison. FINDINGS: Lung volumes are normal. Lungs are clear. There is no pneumothorax or pleural effusion. Cardiac size is normal. Mediastinal contours are normal. There is no evidence for pulmonary edema. Incidental note is made of an azygos fissure. IMPRESSION: No acute cardiopulmonary findings. ACT 112: Negative or not required by law. Electronically signed by: Bart Rodrigez M.D. 12/05/2021 5:38 PM Lumbar Spine X-Ray 12/06/21 11:25 FL lumbar spine 2-3V CLINICAL HISTORY: L4-5 DECOMPRESSION/FUSION COMPARISON STUDY: None. FLUOROSCOPY TIME: 21 seconds. FINDINGS: 2 fluoroscopic spot images of the lower lumbar spine demonstrate posterior decompression fusion at L4-L5 with pedicle screws and rods. A disc spacer is in place. The hardware appears intact. IMPRESSION: Fluoroscopic assistance provided for L4-5 posterior decompression and fusion. ACT 112: Negative or not required by law. Electronically signed by: Rolan Briceño M.D. 12/06/2021 2:26 PM (1) Low back pain Back pain laterality: left Chronicity: acute Sciatica laterality: sciatica of left side Sciatica presence: with sciatica Qualified Code(s): M54.42 - Lumbago with sciatica, left side
--- NOTE | 2021-12-08 11:33 | Discharge Summary ---
Date of Service December 08, 2021 Admission HPI Per Admitting Provider This is a 41-year-old male who presents with lumbar back pain with radiation to bilateral lower extremities. Pain is much worse on the left than the right. It radiates in the left buttock posterior thigh to the foot. There is dense numbness and tingling in the left lower extremity. He is been developing a foot drop and left lower extremity. This is markedly limited his ability to stand and ambulate. He has been to the emergency room on more than one occasion secondary to severe pain. He is attempted recent hearing healthcare practitioner without any benefit. Is undergone lumbar injections in the past without improvement. Principal Diagnosis Lumbar disc condition with radiculopathy and progressive neuro deficit Discharge Data Allergies Allergy/AdvReac Type Severity Reaction Status Date / Time famotidine Allergy Intermediate HIVES/ULCERS Verified 11/26/21 22:13 IN MOUTH Consultations 12/05/21 09:57 ED Decision to Admit Stat 12/05/21 19:58 Consult Internal Medicine Routine Procedures Performed Operation Date: 12/06/21 11:25 Actual Procedures p L4-L5 Decompression Fusion(Not Applicable) - Dalton Campbell DO Ordered Studies 12/06/21 11:25 FL lumbar spine 2-3V Routine Hospital Course (1) Lumbar disc herniation with radiculopathy: Patient was admitted with severe radiculopathy and weakness affecting left lower extremity underwent surgery the following day tolerates well and was taken to orthopedic floor. Postop day 1 his symptoms are markedly improved. Is able to ambulate. He progressed to postop day #2 with improved strength. DOMINIQUE drain decreasing probably. Subsequent discharge home. Discharge orders instructions from the chart for further review. Total Time Total Time Spent Total Time Spent (In Minutes): 20 minutes Discharge Plan Discharge Items Patient Disposition: Home - Self-Care Reason For Visit: LUMBAR DISK HERNIATION WITH WEAKNESS Discharge Diagnosis: Lumbar L4-5 disc herniation with radiculopathy and neurologic deficit Condition on Discharge: Good Activity: As commented below Non-emergency contact: Primary Care Provider Call non-emergency contact if: you have any medication questions Follow-up/Referrals: Bob Serrano MD [Primary Care Provider] - Diet: Regular Addtl Attending Provider Instructions: ACTIVITY RECOMMENDATIONS: SELF CARE INSTRUCTIONS AFTER THORACIC/LUMBAR FUSIONS 1. You may walk to your tolerance. It is good exercise for your legs and back. Expect some back and intermittent leg aches and pains. 2. You may perform "counter-top" level activities (make a sandwich, nikky with a project, etc.). 3. No bending or lifting of more than 10 pounds or back twisting of any nature (roll like a log when turning in bed). 4. You may ride in a car for 20-30 minutes at a time. No driving until after your first visit with your doctor. 5. Frequent changes of position and restricting sitting to 30 minutes at a time will help limit the amount of back spasms and stiffness you may experience. 6. You may discontinue the use of ambulatory aids (cane, crutches, etc.) once your strength and confidence allow. 7. You may vinyl flooring installer the shower and let water strike your incision when you arrive home at least once daily. Do not take a tub bath, sit in a hot tub or go into a swimming pool until after your first recheck in the office. SPECIAL CARE INSTRUCTIONS: VERY IMPORTANT TO READ AND REVIEW A. Your surgical incision has been closed with a cosmetic suture under the skin that will dissolve in about 6 weeks. In 14 days, you can use a pair of clean scissors and cut the suture that is left outside of the skin at the ends of your incision. 1. The small skin tapes can be removed 7 days after surgery if they have not fallen off by that point. 2. You may keep the wound open to air as much as possible to promote healing after post-op day number 5 unless told otherwise by your doctor. 3. If you think the wound looks like it is becoming infected (redness or worsening drainage) and/or you are experiencing fever, chill or worsening back pain and muscle spasms, contact the office so that we may evaluate you as soon as possible. B. Complications are uncommon, but please contact us if you have any signs or symptoms of: 1. wound infection (fever higher than 102.5 degrees F, redness, separation of wound, drainage, or increasing pain from the incision) 2. blood clots in legs (pain, swelling, redness and warmth in legs) 3. urinary tract infection (fever higher than 102.5 degrees F, burning upon urination or increased frequency of urination) 4. nerve problems (inability to walk on your toes or heels, numbness, loss of bowel or bladder control) 5. any other symptoms that concern you C. Please call the office at if you have any concerns or questions about your operation or recovery. D. No smoking! Smoking drastically decreases the chance of a solid fusion. E. Do not take any anti-inflammatory medications (Indocin, Advil, Motrin, Aspirin, Naprosyn, etc.) as these may inhibit the chance of a solid fusion. Tylenol is okay to take for pain. MANAGING PAIN AFTER SPINAL SURGERY 1. Narcotic medication is intended for short-term use and will be provided for surgical pain. Surgical pain usually lasts for a period of 4-6 weeks. Narcotic medication includes Percocet, Vicodin, Darvocet, Tylenol #3 or Lortab. 2. Longer-term pain is more appropriately treated with non-narcotic medication such as Tylenol ES. 3. Muscle spasm is not appropriately treated with narcotics. Muscle relaxers such as Soma, Flexeril or Skelaxin can be used along with Tylenol ES. 4. Remember that we all live with some "aches and pains". This is not unusual or uncommon after an injury or as we get older. a. Back pain is expected and may include muscle spasms for 4 to 6 weeks after surgery. The pain should gradually improve. If the pain worsens for no apparent reason, please contact the office. b. Intermittent leg pain may also be experienced and should not be concerned about unless it worsens for no apparent reason. If so, please contact the office. 5. We will provide appropriate medication within the normal guidelines of their prescribed use. We will also be very cautious and aware of potential abuse and extended duration of patients' medication needs. a. Pain medications are for your comfort and to assist with sleep and rest so that the tissue can heal. They are not provided in order to return to normal activity and should not be used through the day. To do so or worsening pain at night can result from ongoing tissue damage and development of tolerance to the prescribed medicine. 6. Please allow 2-3 days to process refills. Prescriptions will not be mailed but must be picked up at the office. FOLLOW UP VISIT: Keep your scheduled follow-up appointment. Any questions, please call the office at . Pending Studies at Discharge: No Stand-Alone Forms: My [facility], Smoking Cessation Medications and DC Order Prescriptions: New tramadol 50 mg tablet 50 mg PO Q6H PRN (Reason: pain, moderate) Qty: 30 RF: 0 oxycodone 5 mg tablet 5 mg PO Q6H PRN (Reason: pain, severe) Qty: 30 RF: 0 Continued fluoxetine 40 mg capsule 40 mg PO DAILY RF: 0 trazodone 50 mg tablet 50 mg PO HS PRN (Reason: Sleep) RF: 0 tramadol 50 mg tablet 50 mg PO QID PRN (Reason: Pain) RF: 0 lansoprazole 30 mg capsule,delayed release(DR/EC) 30 mg PO DAILY RF: 0 Discontinued naproxen 500 mg tablet 500 mg PO BID PRN (Reason: Pain) RF: 0 Discharge Orders: Discharge Order (Routine); Ordered 12/08/21 Ordered By: Dalton Campbell Admission Data Admit Date/Time: 12/05/21 16:17 Attending Provider: Dalton Campbell Admit Provider: Dalton Campbell Primary Care Provider: Bob Serrano Other Providers: Kris Reza ; Dalton Campbell ; Radha Dean ; Alvino Kaur ; Brianne El
== END 2021-12-08 13:46 | disposition home or self-care (01) | DRG 455 ==
LOC: ED 07:46 → 3E 16:17